=== PATIENT | female | born 1985 | race Caucasian/White ===

== ENCOUNTER 2019-12-06 11:26 | Emergency (ER) | payer BC ==
[~2019-12-06] VITALS: Ht 154.9 cm; Wt 74.4 kg
[2019-12-06 12:30] LABS: ABSOLUTE LYMPHOCYTES 1.8 thou/uL (0.8-5.3); ABSOLUTE MONOCYTES 0.7 thou/uL (0.0-1.2); ABSOLUTE NEUTROPHILS 4.3 thou/uL (1.6-8.1); BASOPHILS 0.6 %; EOSINOPHILS 0.5 %; HEMATOCRIT 40.5 % (37.0-47.0); HEMOGLOBIN 13.9 gm/dL (12.0-15.0); LYMPHOCYTES 26.1 %; MCH 29.4 pg (26.0-34.0); MCHC 34.4 g/dL (28.0-37.0); MCV 85.5 fL (80.0-100.0); MONOCYTES 10.5 %; MPV 9.3 fl. (7.2-11.1); NUCLEATED RBCS 0 /100WBC; PLATELET COUNT* 123 thou/uL (150-400); POLYS 62.3 %; RBC 4.73 mil/uL (4.20-5.00); RDW-CV 12.8 % (10.5-14.5); WBC 6.8 thou/uL (4.0-11.0)
[2019-12-06 12:37] LABS: CREATININE 0.7 mg/dL (0.6-1.3); POTASSIUM 3.2 mmol/L (3.5-5.1)
[2019-12-06 12:55] LABS: ALBUMIN 3.5 g/dL (3.4-5.0); TOTAL BILIRUBIN 0.6 mg/dL (<0.1-1.0); TOTAL PROTEIN 7.8 g/dL (6.4-8.2)
[2019-12-06 15:26] LABS: URINE BILIRUBIN NEGATIVE (Negative); URINE BLOOD 3+ (Negative); URINE CLARITY CLEAR; URINE COLOR YELLOW; URINE GLUCOSE-RANDOM NEGATIVE (Negative); URINE KETONES 2+ (Negative); URINE LEUKOCYTES NEGATIVE (Negative); URINE NITRITE NEGATIVE (Negative); URINE PROTEIN NEGATIVE (Negative); URINE SPECIFIC GRAVITY <= 1.005 (1.005-1.030)
[2019-12-06] MEDS ORDERED: PROMETHAZI6.25 MG/5 PO (15:31)
[2019-12-06] MEDS ORDERED: MEDROLDOSEPACK PO ×2 (15:31→15:41)
[2019-12-06] MEDS ORDERED: ZPAK PO ×2 (15:31→15:38)
[2019-12-06] MEDS ORDERED: TESSALON PERLE100 MG PO (15:31)
[2019-12-06] MEDS ORDERED: PROAIR HFA8.5 GM INH (15:31)
[2019-12-06 15:34] LABS: AMP/METHAMP Negative (Negative); BARBITURATES Negative (Negative); BENZODIAZEPINES Negative (Negative); COCAINE Negative (Negative); METHADONE Negative (Negative); OPIATES Negative (Negative); PCP Negative (Negative); SQUAMOUS >10 Many /LPF (0-3); THC POSITIVE (Negative); URINE WBC >25 Many /HPF (0-5)
[2019-12-06 15:35] LABS: BACTERIA >30 Many /HPF (None Seen); CASTS None Seen /LPF (None Seen); CRYSTALS None Seen /LPF (None Seen); URINE RBC 3-10 Few /HPF (0-2)
[2019-12-06] MEDS ORDERED: DOXYCYCLINE 10100 MG PO ×2 (15:39→15:40)
[2019-12-06 16:28] VITALS: BP 126/59
== END 2019-12-06 16:06 | disposition home or self-care (01) ==
LOC: M.ERS 11:26
PROVIDERS: Physician Assistant
DX: J20.9 Acute bronchitis, unspecified (principal); E03.9 Hypothyroidism, unspecified; R16.1 Splenomegaly, not elsewhere classified